=== PATIENT | male | born 1940 | race African-American/Black ===

== ENCOUNTER → 2016-07-26 | Day surgery (SDC) | payer MEDICARE ==
[~2016-07-26] VITALS: Ht 177.8 cm; Wt 93.5 kg
[~2016-07-26] MED LIST: ALBU8I INH; ALBUAER3 INH; ALDA2525 PO; ALDA50TA PO; ASPI1TAB69 PO; ASPI81CH CHEW; CYAN100015 BUCCAL; CYCLOPENTOLATE HCL 1% OPHT SOLN 2 ML BTL ONE; DICL75 PO; DICL75TA PO; FLURBIPROFEN 0.03% OPHT SOLN 2.5 ML BTL ONE; HYALURONIDASE/LIDOCAINE/EPINEPHRINE/BUPIVACAINE 4.5 ML SYR LEFT EYE ONE; HYALURONIDASE/LIDOCAINE/EPINEPHRINE/BUPIVACAINE 6 ML SYR LEFT EYE ONE; HYALURONIDASE/LIDOCAINE/EPINEPHRINE/BUPIVACAINE 6 ML SYR ONE; LIDOCAINE HCL 1% 20 ML VIAL ONE; LISI10TA3 PO; MULT1TAB84 PO; PHENYLEPHRINE HCL 10% OPTH SOLN 5 ML BTL ONE; PLAV75TA29 PO; PROPARACAINE HCL 0.5% OPHT SOLN 15 ML BTL LEFT EYE ONE; PROPARACAINE HCL 0.5% OPHT SOLN 15 ML BTL ONE; PROPOFOL 200 MG/20 ML AMP ONE; SIME80CH CHEW; SODIUM CHLORID 0.9% 500 ML INJ 500 ML ONE; ST J81CH PO; TAB-TAB PO; TROPICAMIDE 1% OPHT SOLN 15 ML BTL ONE; VITA100L PO; ZEGE20CA PO; ZEGE20CA4 PO; [UNRECOGNIZED DRUG - CODE]; [UNRECOGNIZED DRUG - CODE] EACH NARE
[2016-07-26 07:15] VITALS: PULSE 65
[2016-07-26] MEDS: FLURBIPROFEN 0.03% OPHT SOLN 2.5 ML BTL LEFT EYE SCH ×4 (07:15→07:30)
[2016-07-26] MEDS: TROPICAMIDE 1% OPHT SOLN 15 ML BTL LEFT EYE SCH ×4 (07:15→07:30)
[2016-07-26] MEDS: CYCLOPENTOLATE HCL 1% OPHT SOLN 2 ML BTL LEFT EYE SCH ×4 (07:15→07:30)
[2016-07-26] MEDS: PHENYLEPHRINE HCL 10% OPTH SOLN 5 ML BTL LEFT EYE SCH ×4 (07:15→07:30)
[2016-07-26] MEDS: LIDOCAINE HCL 1% 30 ML VIAL ONE ×2 (07:29→08:42)
[2016-07-26] MEDS: TOBRAMYCIN/DEXAMETHASONE OPTH OINT 3.5 GM TUBE ONE ×2 (07:29→08:54)
[2016-07-26 07:44] VITALS: BP 159/107; PULSE 72; RESP 18; TEMP 98.1; O2SAT 96
[2016-07-26 09:33] VITALS: BP 145/73; PULSE 68; RESP 16; TEMP 98; O2SAT 97
--- NOTE | 2016-07-31 23:18 | MP ---
cc: ERIC HUNT M.D. [facility] #: [id number] DATE: 07/26/2016 PREOPERATIVE DIAGNOSIS: Visually significant cataract left eye. POSTOPERATIVE DIAGNOSIS: Visually significant cataract left eye. OPERATION: Phacoemulsification with posterior chamber lens implantation, left eye. SURGEON: Eric Hunt MD ANESTHESIA: Retrobulbar with MAC. COMPLICATIONS: None. PROCEDURE: After informed consent was obtained, the patient was brought into the operative suite and placed on appropriate monitors by the Anesthesia Service. The patient had received a prior retrobulbar injection of local anesthetic by the Anesthesia Service in the holding area. The patient's operative eye was then prepped and draped in the usual sterile fashion. A wire lid speculum was placed. A paracentesis incision was made in the peripheral cornea with a 1 mm alessia keratome. The anterior chamber was filled with viscoelastic. The anterior chamber was then entered through a stepped, clear corneal incision using a sharp 3 mm alessia keratome. A circular tear capsulorrhexis was then made with a bent needle cystitome. Following hydrodissection of the lens nucleus with balanced saline, phacoemulsification of the nucleus was performed using a modified chopping technique. The remaining cortex was removed with irrigation/aspiration. The prior two procedures were both performed using the handpieces of the [employer] phaco unit. The capsular bag was then filled with viscoelastic. The intraocular lens was then injected into the capsular bag and positioned. The type of intraocular lens and its power can be found elsewhere in this chart. The remaining viscoelastic was then removed from the anterior chamber with the IA handpiece. The anterior chamber was reformed with balanced saline. The wound was then closed securely with stromal hydration. It was found to be watertight to an intraocular pressure of at least 30 mmHg by palpation. A small amount of balanced salt solution was then removed through the paracentesis site and the intraocular pressure at the end of the case was approximately 20 by palpation. All drapes were then removed. TobraDex ointment was then placed in the eye, which was closed beneath a semi-pressure patch dressing. The patient tolerated this procedure well and left the operating room awake and alert. The patient is to follow-up in my office in the morning. Eric Hunt MD TCYolande/SSB /10:05 AM /11:17 PM
== END | disposition home or self-care (01) ==
LOC: CSDC 06:32
PROVIDERS: ATTEND Optometrist Occupational Vision
DX: H26.9 Unspecified cataract (principal)
CPT/HCPCS: 00142; 66984; J7040; V2632